=== PATIENT | male | born 1945 | race Caucasian/White ===

== ENCOUNTER → 2016-05-18 10:48 | Outpatient (CLI) | payer MEDICARE, BC ==
[2015-05-19 20:28] VITALS: BMI 30.6
[~2016-05-18 10:48] MED LIST: BAYER CHEWABLE81 MG PO; LIPITOR40 MG PO; METOPROLOL TAR100 M1 PO; NIFEDIPINE ER60 MG PO; PRILOSEC20 MG PO
== END | disposition home or self-care (01) ==
LOC: D.US 10:48
DX: R60.0 Localized edema (principal); M79.605 Pain in left leg

== ENCOUNTER 2019-03-09 17:03 | Inpatient (IN) | payer MEDICARE, BC ==
[~2019-03-09] VITALS: Ht 170.2 cm; Wt 84.1 kg
--- NOTE | ~2019-03-09 | ST ---
PATIENT:SHARI AUGUST MEDICAL RECORD: [id number] SEX: M LOCATION:D. D.212 ORDER #: ADMISSION DATE: 03/09/19 AGE OF PATIENT: 73 REFERRING PHYSICIAN: INTERPRETING PHYSICIAN: SANTINO FERNANDO MD DATE OF SERVICE: 03/10/2019 PROCEDURE: Nuclear stress test. INDICATION: Shortness of breath, new onset atrial fibrillation. He was exercised on standard Ryan protocol for 4 minutes, terminated due to achievement of maximum target heart rate response with 31 mCi of sestamibi injected at peak stress, 11 mCi used previously for rest images. FINDINGS: Gated SPECT reveals preserved ejection fraction at 72% with good wall motion and thickening and brightening throughout all segments. SPECT imaging Cardiolite was used as myocardial fusion agent. There is homogeneous uptake throughout all segments at rest and stress with no evidence of inducible ischemia or previous infarction. OVERALL IMPRESSION: 1. This is a normal nuclear stress test with no evidence of inducible ischemia or previous infarction. 2. Gated SPECT reveals a preserved ejection fraction at 72%. In this patient with ongoing symptomatology, the current scan does not suggest the presence of hemodynamically significant coronary artery disease. Evaluate noncardiac etiology of chest pain. TRANSINT:[id number] Voice Confirmation ID: [id number] DOCUMENT ID: [id number] SANTINO FERNANDO MD CC: [id number] DICTATION DATE: 03/10/19 1745 PROFESSOR OF SOCIAL WORK: 03/11/19 0412 ADM IN [id number] [place] [address]
--- NOTE | ~2019-03-09 | EC ---
PATIENT:SHARI AGUUST DATE OF SERVICE: 03/09/19 SEX: M MEDICAL RECORD: [id number] DATE OF : 41 LOCATION:D.M2 D.212 AGE OF PATIENT: 73 ADMISSION DATE: 03/09/19 REFERRING PHYSICIAN: INTERPRETING PHYSICIAN: SANTINO NORTH MD ECHOCARDIOGRAM REPORT ECHO CHARGES 4 ECHO COMPLETE Date: 03/10/19 CLINICAL DIAGNOSIS: AF ECHOCARDIOGRAPHIC MEASUREMENTS (adult normal given) AC root (d.<3.7cm) 2.7 cm LV Septum d (<1.2 cm> 0.9 cm Valve Excursion 1.5 cm LV Septum (systole) 1.3 cm Left Atria (s.<4.0cm> 4.0 cm LVPW d(<1.2cm) 1.2 cm RV (d.<2.3cm) 3.4 cm LVPW (sytole) 1.4 cm LV diastole(<5.6CM) 4.1 cm MV E-F(>70mm/sec) cm LV systole 3.1 cm LVOT Diameter 1.9 cm MV exc.(>10mm) cm Est.ejection fraction (50-75%) % DOPPLER: LVIT cm/sec A 34 cm/sec E 115 cm/sec LA cm/sec RVSP 31.2 mmHg LVOT 143 cm/sec AOP1/2T m/s Asc. Ao 219 cm/sec RVOT 80 cm/sec RA cm/sec PA 101 cm/sec AV Gradient Peak 19.2 mmHg AV Mean 9.6 mmHg AV Area 2.1 cm MV Gradient Peak 7.3 mmHg MV Mean 2.5 mmHg MV Area cm COMMENTS: Pharmacology Teacher: Chaz WILKERSONKATHARINA DINA Office Support Assistant: 1 Dr. North TAPE# PACS Pericardial Effusion N DATE OF SERVICE: 03/10/2019 FINDINGS: 1. Left ventricular chamber size is within normal limits. Left ventricular systolic function is normal. Overall ejection fraction estimated at 55%. 2. Left atrium is within normal limits. Right atrium and right ventricular chamber sizes are mildly dilated. 3. Valvular structures have normal structure and motion. 4. Doppler interrogation reveals [id number] aortic insufficiency, mild mitral regurgitation, mild tricuspid regurgitation, no other valvular ECHOCARDIOGRAM REPORT [id number] SHARI AUGUST insufficiency or stenosis. 5. No evidence of pericardial effusion or left ventricular thrombus. TRANSINT:[id number] Voice Confirmation ID: [id number] DOCUMENT ID: [id number] SANTINO NORTH MD CC: [id number] DICTATION DATE: 03/10/191733 ELECTRIC DEICER INSPECTOR: 03/10/19 1829 ADM IN [id number] [place] [address]
--- NOTE | ~2019-03-09 | CN ---
PATIENT NAME:SHARI CHAKRABORTY MEDICAL RECORD: [id number] : 41 LOCATION:. D.2123 ADMIT DATE: 03/09/19 ACCOUNT: [id number] CONSULTING PHYSICIAN: SANTINO FERNANDO MD REFERRING PHYSICIAN: BETTINA PARKER MD DATE OF CONSULTATION: 03/10/2019 DIAGNOSES: 1. Shortness of breath. 2. Edema. 3. Coronary artery disease. 4. Status post coronary artery bypass graft surgery. 5. Atrial fibrillation. 6. Hypertension. 7. Hyperlipidemia. HISTORY OF PRESENT ILLNESS: Mr. Chakraborty presents with increasing lower extremity swelling and shortness of breath. He is found to be in new onset atrial fibrillation of unknown duration. He is rate controlled in the 60s. He is on no AV blocking medications. He has a history of coronary artery disease. He has not had any chest pain, only the shortness of breath. He is on Lasix at home as well as nifedipine. PHYSICAL EXAMINATION: CONSTITUTIONAL/GENERAL APPEARANCE: Well nourished, well developed, appears stated age. EYES: Lids and conjunctivae noninjected. No discharge. No pallor. ENT: Lips within normal limit. No cyanosis. No pallor. NECK: Carotid arteries, bilateral normal upstroke. No bruits. No thrills. No jugular venous pressure or distention. CERVICAL LYMPH NODES: Nontender. Nonenlarged. THYROID: Not enlarged. No nodules. CARDIOVASCULAR: Heart is irregularly irregular with atrial fibrillation. RESPIRATORY: Respiratory effort, unlabored. Normal curvature. No thoracic deformity. No chest wall tenderness. Percussion, resonant. Auscultation, clear. No wheezes, no rales, no rhonchi. ABDOMEN: Soft, nondistended, nontender. No abdominal pain, no vomiting and normal appetite. MUSCULOSKELETAL: No joint tenderness, normal gait, normal tone. SKIN: Warm and dry. LOWER EXTREMITY: +3 pitting edema. OVERALL IMPRESSION: Shortness of breath, lower extremity edema, new onset atrial fibrillation. At this time, he does not need rate control. We will start him on Eliquis anticoagulation bleeding. Leading etiology for this would be ischemia despite having no chest pain. We will risk stratify with stress testing and Cardiolite imaging. Use IV Lasix for the edema. We will actually discontinue the nifedipine as number one side effect of nifedipine is fluid retention and lower extremity edema. We will use another agent if needed for blood pressure control. TRANSINT:[id number] Voice Confirmation ID: [id number] DOCUMENT ID: [id number] CONSULT REPORT [id number] SHARI CHAKRABORTY JEFFREY MD CC: [id number] DICTATION DATE: 03/10/19836 DIGITAL PROOFING AND PLATEMAKER: 03/10/1918 ADM IN [id number] [place] [address]
--- NOTE | 2019-03-09 17:28 | NUR ---
PT TO RM 10, IV PLACED, EKG COMPLETE. INFORMED THAT PT WAS TO BE DIRECT ADMIT
[2019-03-09 17:47] LABS: BASOPHILS 0.4 % (0-2); EOSINOPHILS 2.4 % (0-7); HEMATOCRIT 38.2 % (42.0-54.0); HEMOGLOBIN 12.7 g/dL (13.5-17.5); IMMATURE GRANULOCYTES 0.4 % (0-5); LYMPHOCYTES 21.2 % (15-50); MCH 31.1 pg (26.0-34.0); MCHC 33.2 g/dL (31.0-37.0); MCV 93.6 fL (80.0-100.0); MEAN PLATELET VOLUME 10.4 fL (7.4-10.4); MONOCYTES 9.2 % (2-11); NEUTROPHILS 66.4 % (40-80); RBC 4.08 10x6/uL (4.20-6.10); RDW 13.2 % (11.5-14.5); WBC 8.3 10x3/uL (4.8-10.8)
[2019-03-09 17:53] LABS: PLATELET COUNT 243 10x3/uL (130-400)
--- NOTE | 2019-03-09 17:55 | NUR ---
PT BROUGHT TO RM 10. TRIAGED, EKG PERFORMED, IV ACCESS OBTAINED. AFTER TRIAGE WAS INFORMED PT WAS TO BE A DIRECT ADMIT. PT TAKEN TO RM 2123 VIA WC PER SALES PROCESS MANAGER
[2019-03-09 17:59] LABS: APTT 27.6 SECONDS (22.8-39.4); INR 0.99 (0.85-1.17); PROTIME 12.6 SECONDS (11.6-15.0)
[2019-03-09 18:18] VITALS: BP 146/90; BMI 29.0
[2019-03-09 18:37] LABS: CALC OSMOLALITY 280 mosm/kg (275-300); CALCIUM 9.3 mg/dL (8.5-10.1); CARBON DIOXIDE 23.8 mmol/L (21.0-32.0); CHLORIDE - SERUM 105 mmol/L (98-107); CREATININE - SERUM 0.7 mg/dL (0.6-1.3); GLUCOSE 99 mg/dL (74-106); POTASSIUM - SERUM 3.8 mmol/L (3.5-5.1); SODIUM 139 mmol/L (136-145); UREA NITROGEN 22 mg/dL (7-18); eGFR NON AFRICAN AMERICAN > 90 mL/min (90-120)
[2019-03-09 18:47] LABS: T4 THYROXINE 7.9 ug/dL (4.7-13.3); THYROID STIMULATING HORMONE 2.73 uIU/mL (0.36-3.74)
[2019-03-09 18:54] LABS: ALBUMIN 3.6 g/dL (3.4-5.0); ALKALINE PHOSPHATASE 110 U/L (46-116); ALT (SGPT) 81 U/L (10-68); BILIRUBIN - TOTAL 0.52 mg/dL (0.2-1.3); CKMB 9.8 U/L (0.0-3.6); CREATINE KINASE 169 UL (21-232); PROTEIN - SERUM 7.2 g/dL (6.4-8.2)
[2019-03-09 18:55] LABS: TROPONIN-I < 0.017 ng/mL (0.000-0.060)
--- NOTE | 2019-03-09 20:01 | NUR ---
INITIAL ROUNDS COMPLETED AT 191 HRS. PT DENIED ANY DISCOMFORT. EXPLAINED RATIONALE FOR SUB-Q LOVENOX THIS PM. PT STATED UNDERSTANDING. DR MOYA HERE TO [place] AT 1929 HRS. ASSESSMENT COMPLETED AT 1929 HRS. CAF WITH BBB PER CM RATE 50'S TO 60'S. LUNGS ESSENTIALLY CTA. ABD SOFT WITH ACTIVE BS NOTED. 2+PITTING EDEMA TO LOWER LEGS AND FEET. NEG MANASA'S SIGN. PALPABLE PERIPHERAL PULSES. TO XRAY FOR CTA PE PROTOCOL AT 193 HRS VIA W/C. FAMILY AT BEDSIDE.
[2019-03-09 20:30] VITALS: BP 135/65
--- NOTE | 2019-03-09 20:33 | NUR ---
DR PABLO INFORMED OF PT'S D-DIMER 1.89, NEG PE BUT HAS A 4.3CM ANEURYSM ASCENDING THORACIC AORTA AT 2020 HRS. NO NEW ORDERS.
--- NOTE | 2019-03-09 21:34 | NUR ---
DR MOYA CALLED. LOVENOX ORDERED CHANGED TO 1MG/KG Q12 HRS.
[2019-03-09 23:19] LABS: CREATINE KINASE 143 UL (21-232)
[2019-03-09 23:21] LABS: TROPONIN-I < 0.017 ng/mL (0.000-0.060)
[2019-03-10 00:13] VITALS: BP 136/61
--- NOTE | 2019-03-10 00:48 | NUR ---
PT AWAKE; DENIES ANY DISCOMFORT. SR UP X1,CALL LIGHT WITHIN REACH.
--- NOTE | 2019-03-10 02:26 | NUR ---
PT RESTING WITH EYES CLOSED. RESP EVEN AND REGULAR. SR UP X1, CALL LIGHT WITHIN REACH.
--- NOTE | 2019-03-10 04:17 | NUR ---
PT AWKE; DENIES ANY DISCOMFORT. VOIDED 1500CC OF URINE SINCE LASIX ADMINISTRATION. TRACE PEDAL EDEMA TO BILAT FEET. CALL LIGHT WITHIN REACH.
[2019-03-10 04:26] VITALS: BP 151/68
[2019-03-10 05:33] LABS: CALC OSMOLALITY 285 mosm/kg (275-300); CALCIUM 8.9 mg/dL (8.5-10.1); CARBON DIOXIDE 29.4 mmol/L (21.0-32.0); CHLORIDE - SERUM 106 mmol/L (98-107); CREATINE KINASE 133 UL (21-232); CREATININE - SERUM 0.8 mg/dL (0.6-1.3); GLUCOSE 110 mg/dL (74-106); POTASSIUM - SERUM 3.7 mmol/L (3.5-5.1); PRO BNP 1060 pg/mL (0-450); SODIUM 142 mmol/L (136-145); UREA NITROGEN 18 mg/dL (7-18); eGFR NON AFRICAN AMERICAN > 90 mL/min (90-120)
[2019-03-10 05:44] LABS: TROPONIN-I < 0.017 ng/mL (0.000-0.060)
--- NOTE | 2019-03-10 06:06 | NUR ---
VSS THOUGHOUT NIGHT. CAF WITH BBB PER CM HR 40'S TO 60'S. NEEDS MET; WILL CONTINUE TO MONITOR.
--- NOTE | 2019-03-10 07:28 | HP ---
PATIENT: SHARI AUGUST MEDICAL RECORD: [id number] ACCOUNT: [id number] LOCATION:[address] : [birth year] ADMISSION DATE: 03/09/19 PCP: BETTINA PARKER MD HISTORY AND PHYSICAL EXAMINATION REASON FOR ADMISSION: Shortness of breath and edema in the legs. HISTORY OF PRESENT ILLNESS: The patient is a 33-year-old male with history of 3-vessel CABG at the LAD and left circumflex and RCA 10 years ago. He has seen Dr. North 2 years ago and had an echo that showed mild AI, MR, and TR with normal EF. The patient states he and his had flown a vacation to [facility] about 10 days ago and returned. He notes his legs were swelling when he return, left greater than right. For the last few nights, he has had to sit up to breathe at night, just could not get comfortable describing is chest congestion or pressure in his chest. Denies any exertional symptoms, however. He told his daughter about this and [facility] He was found to be in atrial fib with a slow rate. Therefore, he was admitted for further evaluation. He has no history of DVT or family history of clotting abnormalities. He denies any recent exertional chest pain. PAST MEDICAL HISTORY: He was admitted for syncope 05/2015 due to beta-lisa induced bradycardia and was switched to Procardia at that time, history of essential hypertension, 5-vessel CABG, aortic insufficiency, mitral regurgitation, tricuspid regurgitation, GERD, history of prostate cancer, and hyperlipidemia. PAST SURGICAL HISTORY: He has had prostatectomy, 5-vessel CABG in 2008. He had an essentially normal heart cath showing his stable patent bypass grafts in 05/2015. ALLERGIES: None known. FAMILY HISTORY: His mother had heart disease in her 80s. Father of a stroke. HOME MEDICATIONS: Lipitor 80 mg 1 half tab 40 mg at bedtime, Prilosec 20 mg a day, Procardia-XL 60 mg a day, and aspirin 81 mg daily. REVIEW OF SYSTEMS: Denies fatigue, had been more short of breath and tight in his chest for the last week. No fever. HEENT: No recent visual change, sinus congestion, had trouble with his ears, feeling like they are plugged and decreased hearing. CARDIAC: Denies any exertional chest pain. He has had increasing edema in both lower extremities, left greater than right over the last week. GASTROINTESTINAL: No dyspepsia, change in stools or blood per rectum. RESPIRATORY: Dyspnea at night, having to sit up to feel comfortable from a respiratory standpoint. Denies sputum production with dry cough. Denies hemoptysis. GENITOURINARY: Has mild incontinence. MUSCULOSKELETAL: Denies arthralgias. NEUROLOGICAL: No history of stroke, TIA, or vascular headaches. INTEGUMENTARY: No rash or itching. PSYCHIATRIC: Denies depressed mood. PHYSICAL EXAMINATION: HISTORY AND PHYSICAL [id number] MATASHARI VITAL SIGNS: His temperature is 98.8 Fahrenheit orally, pulse ranging from 40-64 and irregular, respirations are 17, blood pressure 134/88 with a sat of 96% on room air. GENERAL: The patient is alert and oriented. HEENT: Eyes are clear. Oropharynx unremarkable. NECK: Supple. CHEST: Clear throughout without wheeze or rales. HEART: Irregular rate without gallop. He has a I/ aortic insufficiency murmur. PMI is displaced laterally. ABDOMEN: Soft, nontender. No bruits. LOWER EXTREMITIES: He has 4+ edema in his left lower leg below the knee, 2+ on the right. He has negative Homans sign. Legs are nontender, not erythematous. NEUROLOGIC: Oriented to person, place, and time. Cranial nerves grossly intact. Gait is normal. LABORATORY DATA: H and H is 12.7 and 38.2 with normal indices, platelet count of 243,000. Chemistry shows a BUN of 22, creatinine 0.7. Electrolytes are normal. ALT mildly elevated at 81, LDH is 245. CPK-MB is elevated at 9.8. Troponin is normal. Thyroid functions are normal. INR is 0.99. D-dimer is currently pending. Chest x-ray shows aortic atherosclerosis, no effusion or edema appreciated. There is 3.2 cm partially calcified abdominal aortic aneurysm. EKG shows atrial fibrillation with slow rate as low as 35 beats per minute, poor anterior R waves suggesting old anterior UT, ST-T wave abnormality. ASSESSMENT: 1. Atrial fibrillation with bradycardia. 2. Increased peripheral edema. 3. Left lower extremity edema with recent air travel and shortness of breath. PLAN: We will check a D-dimer. CTA chest if elevated, to rule out an occult PE, DVT. We will monitor tonight night of further bradycardia. We will consult cardiology. Echocardiogram will be obtained in the morning. We will place on low dose Lasix this evening. TRANSINT:[id number] Voice Confirmation ID: [id number] DOCUMENT ID: [id number] MARIA TERESA MOYA MD at 0728 CC: [id number] DICTATION DATE: 03/09/191931 RN LPN LVN: 03/09/19 2141 ADM IN [facility] [address] [id number]
--- NOTE | 2019-03-10 07:33 | NUR ---
PT SITTING UP IN BED. RR EVEN AND UNLABORED. DENIES NEEDS OR PAIN AT THIS TIME. IV NOTED TO LEFT HAND. CALL LIGHT WITHIN REACH. BED IN LOWEST POSITION. WILL CONTINUE TO MONITOR.
[2019-03-10 08:33] VITALS: Ht 170.2 cm; Wt 84.1 kg
--- NOTE | 2019-03-10 09:31 | NUR ---
PT C/O TENDERNESS TO IV SITE. IV D/C WITH CATHETER TIP INTACT. REINSERTED 20G TO LEFT FOREARM X1 ATTEMPT.
--- NOTE | 2019-03-10 09:34 | NUR ---
I have reviewed this patient and I concur with the Shift Assessment completed by the Licensed Practical Nurse today this shift.
[2019-03-10 10:42] VITALS: BP 133/76
[2019-03-10 13:34] VITALS: BP 118/63
[2019-03-10 18:36] VITALS: BP 128/69
[2019-03-10 20:35] VITALS: BP 153/70
--- NOTE | 2019-03-11 01:10 | NUR ---
RESTING WITH EYES CLOSED, RESPERATIONS EVEN, NO S/S DISTRESS NOTED.
[2019-03-11 04:30] VITALS: BP 150/64
--- NOTE | 2019-03-11 07:30 | NUR ---
ASSESSMENT DONE. DENIES NEEDS
[2019-03-11 09:24] VITALS: BP 160/76
--- NOTE | 2019-03-11 10:00 | NUR ---
I have reviewed this patient and I concur with the Shift Assessment completed by the Licensed Practical Nurse today this shift.
[2019-03-11] MEDS ORDERED: ELIQUIS5 MG PO (13:33)
[2019-03-11] MEDS ORDERED: ALTACE10 MG PO (13:35)
--- NOTE | 2019-03-11 15:35 | NUR ---
DC GIVEN TO PT, DC HOME PER PERSONAL CAR
--- NOTE | 2019-03-11 15:53 | MORECARE ---
CASE MANAGEMENT DISCHARGE SUMMARY PATIENT: SHARI AUGUST UNIT: [id number] ADM DATE: 03/09/19 AGE: 73 : 43 SEX: M ROOM/BED: D.2122 AUTHOR: SANTIAGO TAI PHYSICIAN: REFERRING PHYSICIAN: BETTINA PARKER MD DATE OF SERVICE: 03/11/19 Discharge Plan Patient Name: SHARI AUGUST [facility] [facility] 1945 Planned Disposition: Home Anticipated Discharge Date: 03/11/19 Discharge Date: 03/11/2019 Expected LOS: 2 Initial Reviewer: [email or web address] Initial Review Date: 03/11/2019 Generated: 03/11/19 4:53 pm Patient Name: SHARI AUGUST Page [phone] at 1553 All edits/amendments must be made on the electronic document DICTATION DATE: 03/11/19 155 RDA: KALEB 03/11/19 155 RPT#: [id number] DC DATE:03/11/19 STATUS: DIS IN [facility] [address] [place] [address] END OF REPORT
--- NOTE | 2019-03-11 16:13 | MORECARE ---
CASE MANAGEMENT DISCHARGE SUMMARY PATIENT: SHARI AUGUST UNIT: [id number] ADM DATE: 03/09/19 AGE: 73 : 43 SEX: M ROOM/BED: D.2123 AUTHOR: ZAIREDOC PHYSICIAN: REFERRING PHYSICIAN: BETTINA PARKER MD DATE OF SERVICE: 03/11/19 Discharge Plan Patient Name: SHARI AUGUST Facility: [facility]:[place] : 1945 Planned Disposition: Home Anticipated Discharge Date: 03/11/19 Discharge Date: 03/11/2019 Expected LOS: 2 Initial Reviewer: [email or web address] Initial Review Date: 03/11/2019 Generated: 03/11/19 5:12 pm Comments DCP- Discharge Planning Updated by [email or web address]: Luiz Cadet on 03/11/19 3:[address] Patient Name: SHARI AUGUST Admission Status: ER Accout number: [id number] Admission Date: 03-09-2019 : 1945 Admission Diagnosis: Attending: BETTINA PARKER Current LOS: 2 Anticipated DC Date: 03-11-2019 Planned Disposition: Home Primary Insurance: MEDICARE A & B Discharge Planning Comments: CM MET WITH PT IN ROOM TO DISCUSS DISCHARGE PLANNING AND NEEDS. PT REPORTS LIVING AT HOME INDEPENDENTLY WITH SPOUSE. PT HAS NO MEDICAL EQUIPMENT AND NO OUTSIDE SERVICES ASSISTING IN THE HOME. CM DISCUSSED AVAILABILITY OF HOME HEALTH, REHAB SERVICES AND MEDICAL EQUIPMENT. PT DENIES DISCHARGE NEEDS, REPORTS HIS WILL PICK HIM UP FOR DISCHARGE HOME. OFFAL ICER POULTRY NURSE NOTIFIED. Helicopter Pilot: Luiz Cadet DCPIA - Discharge Planning Initial Assessment Updated by [email or web address]: Luiz Cadet on 03/11/19 4:08 pm * Is the patient Alert and Oriented? Yes * How many steps to enter\exit or inside your home? NONE * PCP DR. PARKER * Pharmacy [facility] * Preadmission Environment Home with Family * ADLs Independent * Equipment None * Other Equipment NO MEDICAL EQUIPMENT PROVIDER PREFERENCE * List name and contact numbers for known caregivers / representatives who currently or will assist patient after discharge: ADITI AUGUST, SPOUSE, * Verbal permission to speak to the caregivers and representatives has been obtained from the patient. Yes * Community resources currently utilized None * Please name any agencies selected above. NONE * Additional services required to return to the preadmission environment? No * Can the patient safely return to the preadmission environment? Yes * Has this patient been hospitalized within the prior 30 days at any hospital? No Last DP export: 03/11/19 2:53 p Patient Name: SHARI AUGUST Page [phone] at 1613 All edits/amendments must be made on the electronic document DICTATION DATE: 03/11/191611 SCIENTIFIC ILLUSTRATOR: KALEB 03/11/191611 RPT#: [id number] DC DATE:03/11/19 STATUS: DIS IN [facility] [address] [place] [address] END OF REPORT
== END 2019-03-11 15:36 | disposition home or self-care (01) | DRG 310 ==
LOC: D.ER 17:03 → D.M2 17:49 → D.SDCHOLD 03-11 11:26 → D.M2 03-11 11:26
PROVIDERS: Family Medicine; ADMIT Family Medicine; ATTEND Family Medicine
DX: I48.91 Unspecified atrial fibrillation (principal); R00.1 Bradycardia, unspecified; I10 Essential (primary) hypertension; I08.3 Combined rheumatic disorders of mitral, aortic and tricuspid valves; K21.9 Gastro-esophageal reflux disease without esophagitis; E78.5 Hyperlipidemia, unspecified; I25.10 Atherosclerotic heart disease of native coronary artery without angina pectoris

== ENCOUNTER 2019-04-14 09:48 | Outpatient (CLI) | payer MEDICARE, BC ==
[~2019-04-14] VITALS: Ht 170.2 cm; Wt 80.5 kg
--- NOTE | ~2019-04-14 | HEMODYNAMI ---
PATIENT:SHARI AUGUST MEDICAL RECORD: [id number] : 41 LOCATION:D.CAT ADMISSION DATE: 04/14/19 Generatedon:04/14/201911:38 Patient name: SHARI AUGSUT Patient #: [id number] SSN: : 1945 Date of study: 04/14/2019 Page: Of Hemodynamic Procedure Report Patient Data Patient Demographics Procedure consent was obtained First Name: SHARI Gender: Male Last Name: MATA : 1945 [facility] Initial: NATALIIA Age: 73 year(s) Patient #: [id number] Race: Additional ID: [id number] Contact details Address: [address] [address] State: [place] City: [place] Zip code: [address] Past Medical History Allergies: No known allergies Admission Admission Data Admission Date: 04/14/2019 Admission Time: 9:48 Arrival Date: 04/14/2019 Arrival Time: 0:00 Height (in.): 66.93 BSA: 1.92 (m2) Height (cm.): 170 BMI: 27.68 (kg/m2) Weight (lbs.): 176.37 Weight (kg.): 80 Lab Results Lab Result Date: 04/14/2019 Lab Result Time: 0:00 Biochemistry Name Units Result Min Max BUN mg/dl 17 --(---*)-- 7 18 Creatinine mg/dl 0.8 --(-*--)-- 0.6 1.3 eGFR ml/min 90 --(*---)-- 90 120 NONAFRICAN CBC Name Units Result Min Max Hematocrit % 37.5 *-(----)-- 42 54 Hemoglobin g/dl 13.2 -*(----)-- 13.5 17.5 Procedure Procedure Types Cath Procedure Diagnostic Procedure Cardioversion External Procedure Description Procedure Date Procedure Date: 04/14/2019 Procedure Start Time: 11:28 Procedure End Time: 11:35 Procedure Staff Name Function Wilson North MD Performing Physician Bhavana Dillon RT Monitor Audrey Hilton RT Monitor Zay Sherman RN Nurse Vimal Swanson MD Additional personnel Procedure Data Cath Procedure Estimated blood loss: 0 ml Procedure Complications No complications Procedure Medications Medication Administration Route Dosage Oxygen etCO2 Nasal cannula 2 l/min Refer to Anesthesia Notes for Sedation Medications Hemodynamics Rest BSA: 1.92 (m2) HGB: 13.2 (g/dl) O2 Consumption: Estimated: 219.48 (ml/min) O2 Consumption indexed: Estimated:114.31 (ml/min/m) Heart Rate: 68 (bpm) Snapshots Pre Cath Intra NCS Post Cath Vital Signs Time Heart Resp SPO2 etCO2 NIBP (mmHg) Rhythm Pain Sedation Rate (ipm) (%) (mmHg) Status Level (bpm) 11:16:02 52 12 100 0 141/73(120) NSR 0 (11) 10(A) , No pain 11:20:24 58 9 100 34.6 140/67(111) NSR 0 (11) 10(A) , No pain 11:25:23 52 14 99 12.7 Measuring NSR 0 (11) 10(A) , No pain 11:25:27 55 12 99 17.3 150/84(107) NSR 0 (11) 10(A) , No pain 11:29:37 61 22 98 30.8 132/83(118) NSR 0 (11) 10(A) , No pain 11:33:51 64 14 97 16.5 147/72(108) NSR 0 (11) 10(A) , No pain Medications Time Medication Route Dose Verified Delivered Reason Notes Effective ness by by 11:20:10 Oxygen etCO2 2 Wilson Collazo used for Nasal l/min Can Sherman RN procedure cannula 11:20:14 Refer to Wilson Collazo Anesthesia Can Sherman RN Notes for Sedation Medications Procedure Log Time Note 10:55:37 Informed consent obtained and on chart 10:56:20 Procedure Status Elective Heart Cath (OP). 10:56:22 Zay Sherman RN sent for patient. Start room use. 10:56:23 Time tracking: Regular hours (M-F 7:00 - 5:00) 10:56:26 Plan of Care:Hemodynamics will remain stable., Cardiac rhythm will remain stable., Comfort level will be maintained., Respiratory function will remain adequate., Patient/ family verbilizes understanding of procedure., Procedure tolerated without complication., Recovers from procedure without complications.. 10:56:33 H&P Date Dictated: 04/07/2020 Within 30 days and on chart., H&P Addendu m completed by physician on day of procedure. (MUST COMPLETE FOR ALL OUTPATIENTS). 10:56:39 Patient allergic to No known allergies 10:57:48 Patient Weight : 176.37 lbs 10:57:50 Patient Height : 66.93 inches 10:57:54 Arrival Date: 04/14/2019 12:00:00 AM 10:58:53 Lab Result : Creatinine 0.8 mg/dl 10:58:53 Lab Result : BUN 17 mg/dl 10:58:53 Lab Result : Hemoglobin 13.2 g/dl 10:58:53 Lab Result : eGFR NONAFRICAN 90 ml/min 10:58:53 Lab Result : Hematocrit 37.5 % 11:00:49 Vimal Swanson MD present and monitoring patient for TIVA. 11:11:11 Patient arrived from Pre/Post Procedure Room to [facility]. Patient remains on bed/stretcher for procedure. 11:11:12 Warm blankets applied, and romina hugger turned on for patient comfort. 11:11:13 ECG and BP/O2 sat monitors applied to patient. 11:11:13 Correct patient and procedure confirmed by team. 11:14:43 Vital chart was started 11:14:45 Baseline sample Acquired. 11:15:48 Baseline sample Acquired. 11:15:54 Rhythm: atrial fibrillation 11:15:57 Full Disclosure recording started 11:15:58 Pre-procedure instructions explained to patient. 11:15:59 Pre-op teaching completed and patient verbalized understanding. 11:16:02 Family in patients room. 11:16:04 Patient NPO since Midnight. 11:16:11 Is the patient allergic to Iodine/contrast media? No. 11:16:14 Was the patient premedicated? Yes 11:16:17 Is patient on blood thinner?Yes 11:16:24 ACC The patient was administered the following blood thiners within the last 24 hours: Eliquis 11:16:33 Patient diabetic? No. 11:16:35 ----Pre-sedation anethsthesia assessment.---- 11:16:39 Previous problem with sedation/anesthesia? No ? 11:16:43 Snore? Yes 11:16:46 Sleep apnea? No 11:16:49 Deviated septum? No 11:16:51 Opens mouth fully? Yes 11:16:54 Sticks out tongue? Yes 11:16:58 Airway obstruction? No ? 11:17:09 Dentures? No ? 11:17:11 - 11:17:29 IV patent on arrival in left forearm with 0.9% NaCl at [facility]. 11:17:57 Lab results completed and on chart. 11:20:10 Oxygen 2 l/min etCO2 Nasal cannula was administered by Zay Sherman RN; used for procedure; Verbal order read back and verified. 11:20:14 Refer to Anesthesia Notes for Sedation Medications was administered by Zay Sherman RN; ; Verbal order read back and verified. 11:22:12 Patient pain scale 2/10 back pain. 11:23:41 --------ALL STOP TIME OUT------ 11:23:42 Final Timeout: patient, procedure, and site verified with staff and physician. All members of the team are in agreement. 11:23:48 Physical assessment completed. ASA score P 2 - A patient with mild systemic disease as per Wilson North MD. 11:23:56 Sedation plan: TIVA Medication:Propofol 11::09 Procedure started. 11:28:10 ------Cardioversion------ 11:28:27 Quick Combo opened to sterile field. 11:28:29 Quick combo pads placed on patients chest and back. 11:30:11 Defibrillator synced and charged to 275 Joules. 11:30:20 Shock delivered. 11:30:43 Patient cardioverted to sinus rhythm . 11:30:46 Procedure ended.(Physican Out) 11:31:31 Post-procedure physical assessment completed. ASA score P 2 - A patient with mild systemic disease as per Wilson North MD. 11:31:36 Post procedure rhythm: sinus rhythm 11:31:41 Estimated blood loss: 0 ml 11:31:44 Post procedure instruction explained to patient.Patient verbalizes understanding. 11:31:45 Patient needs reinforcement of post procedure teaching. 11:31:55 Procedure and supply charges have been captured, reviewed, submitted an d are correct. 11:32:42 Procedure Complication : No complications 11:32:54 Operative report dictated upon procedure completion. 11:32:55 See physician's report for complete and final results. 11:35:37 Vital chart was stopped 11:35:42 Report given to Pre/Post Procedure Room. 11:35:48 Patient transfered to Pre/Post Procedure Room with Stretcher. 11:35:52 Procedure ended. 11:35:52 Full Disclosure recording stopped 11:35:56 End room use (Document Last) Device Usage Item Manufacture Quantity Catalog Hospital Part Current Minimal Lot# / Name Number Charge Number Stock Stock Rivas al# Code Quick [employer] 1 [id number] Combo Signature Audit Jackson Stage Time Signature Unsigned Intra-Procedure 04/14/2019 Audrey 11:37:09 AM Yobani RT(R) (CV) Intra-Procedure 04/14/2019 Zay Sherman RN 11:37:36 AM Intra-Procedure 04/14/2019 Wilson North 11:38:01 AM [id number] [place] [address]
--- NOTE | ~2019-04-14 | OP ---
PATIENT NAME: SHARI AUGUST MEDICAL RECORD: [id number] :41 LOCATION:D.CAT ADMISSION DATE: SURGEON: SANTINO FERNANDO MD DATE OF OPERATION: 04/14/2019 PROCEDURE: DC cardioversion. INDICATION: Atrial fibrillation. PROCEDURE IN DETAIL: IV conscious sedation was per anesthesia. He received 1 shock at 275 joules restoring sinus rhythm. OVERALL IMPRESSION: Successful DC cardioversion from atrial fibrillation to sinus rhythm. TRANSINT:[id number] Voice Confirmation ID: [id number] DOCUMENT ID: [id number] SANTINO FERNANDO MD CC: [id number] DICTATION DATE: 04/14/19 1132 QUARTER LINING SMOOTHER: 04/14/19 1627 DEP CLI 04/14/19 [place] [id number] [place] [id number]
[~2019-04-14 09:48] MED LIST changes: +ALTACE10 MG PO; +ELIQUIS5 MG PO
[2019-04-14] MEDS ORDERED: BUMEX2 MG PO (10:01)
[2019-04-14 10:25] VITALS: BP 118/67; Ht 170.2 cm; Wt 80.5 kg
[2019-04-14 10:47] LABS: BASOPHILS 0.2 % (0-2); EOSINOPHILS 1.3 % (0-7); HEMATOCRIT 37.5 % (42.0-54.0); HEMOGLOBIN 13.2 g/dL (13.5-17.5); IMMATURE GRANULOCYTES 0.3 % (0-5); LYMPHOCYTES 21.3 % (15-50); MCH 31.6 pg (26.0-34.0); MCHC 35.2 g/dL (31.0-37.0); MCV 89.7 fL (80.0-100.0); MEAN PLATELET VOLUME 10.1 fL (7.4-10.4); MONOCYTES 7.9 % (2-11); PLATELET COUNT 237 10x3/uL (130-400); RBC 4.18 10x6/uL (4.20-6.10); RDW 12.5 % (11.5-14.5); WBC 6.3 10x3/uL (4.8-10.8)
[2019-04-14 10:51] LABS: CALC OSMOLALITY 275 mosm/kg (275-300); CALCIUM 9.1 mg/dL (8.5-10.1); CARBON DIOXIDE 26.5 mmol/L (21.0-32.0); CHLORIDE - SERUM 102 mmol/L (98-107); CREATININE - SERUM 0.8 mg/dL (0.6-1.3); GLUCOSE 106 mg/dL (74-106); INR 1.22 (0.85-1.17); POTASSIUM - SERUM 4.6 mmol/L (3.5-5.1); PROTIME 14.8 SECONDS (11.6-15.0); SODIUM 137 mmol/L (136-145); UREA NITROGEN 17 mg/dL (7-18); eGFR NON AFRICAN AMERICAN > 90 mL/min (90-120)
--- NOTE | 2019-04-14 11:40 | NUR ---
PT RECEIVED FROM VIDEO TAPE TRANSFERRER POST CARDIOVERSION. PT AWAKE AND ALERT, DENIES PAIN OR DISCOMFORT AT THIS TIME. IV PATENT INFUSING VIA ORDERS TO R ARM. PT PLACED ON CARDIAC MONITORS AND O2 VIA NC AT 1L. HR 71, BP 125/68, SAT 92 ON ROOM AIR. SMALL REDDENED AREA TO UPPER CHEST NOTED. CALL LIGHT IN REACH, FAMILY AT BEDSIDE.
--- NOTE | 2019-04-14 12:00 | NUR ---
PT RESTING COMFORTABLY, HR 65, NO AFIB NOTED. SANDWICH TRAY SERVED AND MORE COFFEE. PT DENIES PAIN OR DISCOMFORT OR OTHER NEEDS AT THIS TIME. CALL LIGHT IN REACH
--- NOTE | 2019-04-14 12:30 | NUR ---
PT SITTING UP VISITNG W FAMILY. DENIES PAIN OR NEEDS AT THIS TIME. HR 72, BP 151/83, SAT 96. CALL LIGHT IN REACH.
--- NOTE | 2019-04-14 12:45 | NUR ---
DISCHARGE INSTRUCTIONS REVIEWED W PT AND FAMILY, THEY VERBALIZED UNDERSTANDING. IV REMOVED W CATH INTACT, O2 REMOVED. VSS. PT WAITING ON DR FERNANDO TO ROUND BEFORE GETTING UP AND DRESSED.
--- NOTE | 2019-04-14 13:08 | NUR ---
DR FERNANDO IN ROOM, DISCUSSED W PT AND FAMILY REGARDING PLAN OF CARE AND PROCEDURE RESULTS. NEW MEDICATION PRESCRIPTION GIVEN FOR SOTOLOL.
[2019-04-14] MEDS ORDERED: BETAPACE 80 MG80 MG PO (13:11)
--- NOTE | 2019-04-14 13:16 | NUR ---
NEW MEDICATION PRESCRIPTION ADDED TO MED LIST AND GIVEN TO PT. CARDIAC MONITORS REMOVED AND PT UP TO DRESS FOR DISCHARGE
--- NOTE | 2019-04-14 13:20 | NUR ---
PT TO BR VIA WC, VOIDING W/O DIFFICULITY. PT THEN DISCHARGED TO WAITING IN PRIVATE VEHICLE. PT HAD ALL BELONGINGS AND DISCHARGE PAPERWORK AND PRESCRIPTION.
== END 2019-04-14 13:20 | disposition home or self-care (01) ==
LOC: D.CATH 09:48
PROVIDERS: ATTEND Internal Medicine Interventional Cardiology
DX: I48.91 Unspecified atrial fibrillation (principal); E78.5 Hyperlipidemia, unspecified; I10 Essential (primary) hypertension; I25.10 Atherosclerotic heart disease of native coronary artery without angina pectoris; R53.83 Other fatigue

== ENCOUNTER → 2020-01-06 09:37 | Outpatient (CLI) | payer MEDICARE, BC ==
[2019-04-14 10:25] VITALS: BMI 27.8
[~2020-01-06 09:37] MED LIST changes: +BETAPACE 80 MG80 MG PO; +BUMEX2 MG PO
== END | disposition home or self-care (01) ==
LOC: D.HCCECHO 09:37
PROVIDERS: ATTEND Internal Medicine Cardiovascular Disease
DX: I25.10 Atherosclerotic heart disease of native coronary artery without angina pectoris (principal)